=== PATIENT | female | born 1995 | race African-American/Black ===

== ENCOUNTER 2017-02-28 11:42 | Inpatient (IN) | payer SELFPAY ==
[~2017-02-28] VITALS: Ht 165.1 cm; Wt 75.4 kg
[2017-02-28 12:20] LABS: DEFINITIVE VIEW TRANSMISSION; Hematocrit 38.8 % (36.0-46.0); Mean Corpuscular Hemoglobin 26.2 pg (28.0-32.0); Mean Corpuscular Hgb Conc. 33.5 g/dL (32.0-36.0); Mean Corpuscular Volume 78.3 fL (80.0-100.0); Mean Platelet Volume 9.7 fL (7.4-10.4); Platelet Count (auto) 298 10^3/uL (140-450); SUSPECT VIEW TRANSMISSION; White Blood Cell 21.3 10^3/uL (4.4-10.8)
[2017-02-28 12:22] LABS: Metamyelocytes % 0; Myelocytes % 0; Promyelocytes % 0; Reactive Lymphocytes 0
[2017-02-28 12:42] LABS: Albumin 2.8 g/dL (3.4-5.0); Bilirubin, Total 1.4 mg/dL (0.2-1.0); Calcium 8.6 mg/dL (8.5-10.1); Total Protein 8.3 g/dL (6.4-8.2)
[2017-02-28 12:51] LABS: Potassium 2.7 mmol/L (3.5-5.1)
[2017-02-28 13:55] LABS: Microcytosis Slight
[2017-02-28 13:56] LABS: Platelet Estimate Adequate
[2017-02-28 13:57] LABS: Hypochromia Slight; Large Platelets FEW
[2017-02-28] MEDS ORDERED: SODIUM CHLORIDE 0.9% 1,000 ML IVB ONE (13:58)
[2017-02-28] MEDS ORDERED: ONDANSETRON HCL 4 MG/2 ML VIAL IV ONE (14:00)
[2017-02-28] MEDS ORDERED: cefTRIAXone 1GM/50ML D5W 50 ML IV ONE (14:00)
[2017-02-28] MEDS ORDERED: PROMETHAZINE HCL 25 MG/ML 1ML IV ONE (14:15)
[2017-02-28 14:29] LABS: Magnesium 2.3 mg/dL (1.6-2.6)
[2017-02-28] MEDS: POTASSIUM CHL 20MEQ/100ML 100 ML IV SCH ×2 (14:54→16:23)
[2017-02-28 15:01] LABS: Urine Bilirubin Negative (Negative); Urine Color Yellow (Yellow); Urine Glucose Normal (Normal); Urine Nitrite Negative (Negative); Urine RBC 19 /hpf (0 - 4); Urine Squamous Epithelial Cell MANY /hpf (<5)
[2017-02-28 15:02] LABS: Urine Blood 2+ /uL (Negative); Urine Ketone 3+ (Negative)
[2017-02-28] MEDS ORDERED: ACETAMINOPHEN/CODEINE#3 (300/30mg) TAB PO PRN (18:45)
[2017-02-28] MEDS ORDERED: TEMAZEPAM 15 MG CAP PO PRN (18:45)
[2017-02-28] MEDS ORDERED: ONDANSETRON HCL 4 MG/2 ML VIAL IV PRN (18:45)
[2017-02-28] MEDS ORDERED: DOCUSATE SOD 100 MG CAP PO PRN (18:45)
[2017-02-28] MEDS: NITROFURANTOIN (MONO) 100 mg CAP PO SCH (18:54)
[2017-02-28] MEDS: SODIUM CHLORIDE 0.9% 1,000 ML IV SCH (18:54)
[2017-02-28] MEDS: ACETAMINOPHEN 325 MG TAB PO PRN (20:08)
[2017-02-28 21:09] VITALS: BP 104/69
[2017-02-28 22:00] VITALS: BP 104/69
[2017-02-28] MEDS: BOOST PLUS 8 ounce PO SCH (22:00)
[2017-03-01] VITALS (7 sets, daily range): BP systolic 110–121; BP diastolic 59–71
[2017-03-01] MEDS: ACETAMINOPHEN 325 MG TAB PO PRN ×2 (04:43→21:48)
[2017-03-01] MEDS: SODIUM CHLORIDE 0.9% 1,000 ML IV SCH ×4 (04:44→23:30)
[2017-03-01] MEDS: BOOST PLUS 8 ounce PO SCH ×4 (06:00→21:36)
[2017-03-01] MEDS: NITROFURANTOIN (MONO) 100 mg CAP PO SCH ×2 (06:13→18:06)
[2017-03-01 07:14] LABS: Basophils # (auto) 0.1 uL; Basophils % (auto) 0.5 % (0.0-2.0); DEFINITIVE VIEW TRANSMISSION; Eosinophils # (auto) 0 uL; Lymphocytes # (auto) 0.9 uL; Mean Corpuscular Hemoglobin 26.5 pg (28.0-32.0); Mean Corpuscular Hgb Conc. 33.4 g/dL (32.0-36.0); Mean Corpuscular Volume 79.4 fL (80.0-100.0); Mean Platelet Volume 10.8 fL (7.4-10.4); Monocytes # (auto) 2.1 uL; Neutrophils # (auto) 14.3 uL; Neutrophils % (auto) 82.5 % (37.0-80.0); Platelet Count (auto) 240 10^3/uL (140-450); Red Cell Distribution Width 14.8 % (11.6-16.0); White Blood Cell 17.3 10^3/uL (4.4-10.8)
[2017-03-01 07:40] LABS: Potassium 3.2 mmol/L (3.5-5.1)
[2017-03-01 07:47] LABS: BUN/Creatinine Ratio 11.1; Bilirubin, Total 1.1 mg/dL (0.2-1.0); Calcium 8.3 mg/dL (8.5-10.1); Total Protein 6.6 g/dL (6.4-8.2)
[2017-03-01] MEDS: cefTRIAXone 1GM/50ML D5W 50 ML IV SCH (09:12)
[2017-03-01] MEDS: PRENATAL VITAMIN TAB PO SCH (10:14)
[2017-03-01] MEDS: ONDANSETRON HCL 4 MG/2 ML VIAL IV PRN (12:36)
[2017-03-01] MEDS: guaiFENesin 200 MG/10 ML UD PO PRN ×2 (12:36→18:59)
[2017-03-01] MEDS ORDERED: SOD CHL 0.9%/ KCL 40MEQ 1,000 ML IV SCH (13:00)
[2017-03-01] MEDS ORDERED: POTASSIUM CHL 20MEQ/100ML 100 ML IV SCH (13:30)
[2017-03-01] MEDS ORDERED: POTASSIUM CHL 20MEQ/100ML 100 ML IV ONE (13:30)
[2017-03-01] MEDS ORDERED: POTASSIUM CHLORIDE 20 MEQ, LIDOCAINE 1% (LOCAL ANESTH.) 2 ML in SODIUM CHL 0.9% 100 ML IV ONE (14:45)
[2017-03-01] MEDS ORDERED: POTASSIUM CHLORIDE 40 MEQ, LIDOCAINE 1% (LOCAL ANESTH.) 4 ML in SODIUM CHL 0.9% 250 ML IV ONE (14:45)
[2017-03-01] MEDS: SOD CHL 0.9%/ KCL 40MEQ 1,000 ML IV SCH (15:30)
[2017-03-01] MEDS ORDERED: FAMOTIDINE (10MG/ML) 2ML VL IV ONE (16:30)
[2017-03-02] MEDS: guaiFENesin 200 MG/10 ML UD PO PRN ×3 (02:07→17:42)
[2017-03-02] MEDS: ACETAMINOPHEN 325 MG TAB PO PRN ×3 (02:07→15:57)
[2017-03-02] MEDS: SOD CHL 0.9%/ KCL 40MEQ 1,000 ML IV SCH ×3 (04:08→15:22)
[2017-03-02 05:00] VITALS: BP 109/50
[2017-03-02 05:58] LABS: Basophils # (auto) 0 uL; Basophils % (auto) 0.3 % (0.0-2.0); DEFINITIVE VIEW TRANSMISSION; Eosinophils # (auto) 0.1 uL; Eosinophils % (auto) 0.4 % (0.0-7.0); Hematocrit 29.1 % (36.0-46.0); Hemoglobin 9.8 g/dL (12.2-16.2); Lymphocytes # (auto) 1.1 uL; Lymphocytes % (auto) 8.3 % (10.0-50.0); Mean Corpuscular Hemoglobin 26.3 pg (28.0-32.0); Mean Corpuscular Hgb Conc. 33.6 g/dL (32.0-36.0); Mean Corpuscular Volume 78.2 fL (80.0-100.0); Mean Platelet Volume 10.1 fL (7.4-10.4); Monocytes # (auto) 1.6 uL; Monocytes % (auto) 11.7 % (0.0-12.0); Neutrophils % (auto) 79.3 % (37.0-80.0); Platelet Count (auto) 247 10^3/uL (140-450); Red Cell Distribution Width 14.9 % (11.6-16.0); White Blood Cell 13.9 10^3/uL (4.4-10.8)
[2017-03-02] MEDS: BOOST PLUS 8 ounce PO SCH ×4 (06:00→22:00)
[2017-03-02 06:10] LABS: Potassium 3.4 mmol/L (3.5-5.1)
[2017-03-02 06:20] LABS: BUN/Creatinine Ratio 6.4; Calcium 8.3 mg/dL (8.5-10.1); Magnesium 1.7 mg/dL (1.6-2.6)
[2017-03-02] MEDS: NITROFURANTOIN (MONO) 100 mg CAP PO SCH ×2 (06:31→17:42)
[2017-03-02 08:00] VITALS: BP 128/77
[2017-03-02 09:00] VITALS: BP 128/77
[2017-03-02] MEDS: cefTRIAXone 1GM/50ML D5W 50 ML IV SCH (09:33)
[2017-03-02] MEDS: FAMOTIDINE (10MG/ML) 2ML VL IV SCH (09:34)
[2017-03-02] MEDS: PRENATAL VITAMIN TAB PO SCH (09:46)
[2017-03-02 12:22] VITALS: BP 112/64
[2017-03-02] MEDS ORDERED: SOD CHL 0.9%/ KCL 40MEQ 1,000 ML IV ONE (13:00)
[2017-03-02] MEDS: MAGNESIUM SULFATE 1GM/100ML 100 ML IV SCH ×2 (15:22→16:26)
[2017-03-02 16:00] VITALS: BP 109/60
[2017-03-02 21:29] VITALS: BP 120/68
[2017-03-03] MEDS: guaiFENesin 200 MG/10 ML UD PO PRN ×2 (03:13→22:33)
[2017-03-03] MEDS: ACETAMINOPHEN 325 MG TAB PO PRN (03:14)
[2017-03-03 05:10] VITALS: BP 111/63
[2017-03-03 05:51] LABS: Basophils # (auto) 0 uL; Basophils % (auto) 0.1 % (0.0-2.0); DEFINITIVE VIEW TRANSMISSION; Eosinophils # (auto) 0.1 uL; Eosinophils % (auto) 0.7 % (0.0-7.0); Hematocrit 29.5 % (36.0-46.0); Lymphocytes # (auto) 1.3 uL; Lymphocytes % (auto) 11.5 % (10.0-50.0); Mean Corpuscular Hemoglobin 26.5 pg (28.0-32.0); Mean Corpuscular Hgb Conc. 33.8 g/dL (32.0-36.0); Mean Corpuscular Volume 78.5 fL (80.0-100.0); Mean Platelet Volume 9.8 fL (7.4-10.4); Monocytes # (auto) 1.2 uL; Monocytes % (auto) 10.5 % (0.0-12.0); Neutrophils # (auto) 8.7 uL; Neutrophils % (auto) 77.2 % (37.0-80.0); Platelet Count (auto) 275 10^3/uL (140-450); Red Cell Distribution Width 14.8 % (11.6-16.0); White Blood Cell 11.3 10^3/uL (4.4-10.8)
[2017-03-03] MEDS: BOOST PLUS 8 ounce PO SCH ×4 (06:00→22:33)
[2017-03-03 06:13] LABS: BUN/Creatinine Ratio 4.5; Potassium 3.8 mmol/L (3.5-5.1)
[2017-03-03] MEDS: NITROFURANTOIN (MONO) 100 mg CAP PO SCH (06:53)
[2017-03-03] MEDS: SOD CHL 0.9%/ KCL 40MEQ 1,000 ML IV SCH (06:53)
[2017-03-03 09:00] VITALS: BP 113/64
[2017-03-03] MEDS: cefTRIAXone 1GM/50ML D5W 50 ML IV SCH (11:52)
[2017-03-03] MEDS: FAMOTIDINE (10MG/ML) 2ML VL IV SCH (11:52)
[2017-03-03] MEDS: ONDANSETRON HCL 4 MG/2 ML VIAL IV PRN (11:53)
[2017-03-03 13:00] VITALS: BP 116/80
[2017-03-03] MEDS: PRENATAL VITAMIN TAB PO SCH (13:24)
[2017-03-03] MEDS: SODIUM CHLORIDE 0.9% 1,000 ML IV SCH (13:34)
[2017-03-03 22:38] VITALS: BP 129/76
[2017-03-04] MEDS: ACETAMINOPHEN 325 MG TAB PO PRN (03:36)
[2017-03-04 05:32] VITALS: BP 114/59
[2017-03-04] MEDS: BOOST PLUS 8 ounce PO SCH (05:45)
[2017-03-04 05:59] LABS: Basophils # (auto) 0 uL; Basophils % (auto) 0.1 % (0.0-2.0); DEFINITIVE VIEW TRANSMISSION; Eosinophils # (auto) 0.1 uL; Hematocrit 29.6 % (36.0-46.0); Hemoglobin 9.9 g/dL (12.2-16.2); Lymphocytes # (auto) 1.5 uL; Lymphocytes % (auto) 15.8 % (10.0-50.0); Mean Corpuscular Hemoglobin 26.2 pg (28.0-32.0); Mean Corpuscular Hgb Conc. 33.6 g/dL (32.0-36.0); Mean Corpuscular Volume 77.9 fL (80.0-100.0); Mean Platelet Volume 9.2 fL (7.4-10.4); Monocytes # (auto) 1.1 uL; Neutrophils % (auto) 72.1 % (37.0-80.0); Platelet Count (auto) 300 10^3/uL (140-450); Red Cell Distribution Width 15.3 % (11.6-16.0); White Blood Cell 9.7 10^3/uL (4.4-10.8)
[2017-03-04 06:19] LABS: BUN/Creatinine Ratio 4.3; Calcium 7.9 mg/dL (8.5-10.1); Magnesium 1.7 mg/dL (1.6-2.6); Potassium 3.7 mmol/L (3.5-5.1)
[2017-03-04 08:00] VITALS: BP 114/60
[2017-03-04] MEDS: SODIUM CHLORIDE 0.9% 1,000 ML IV SCH ×2 (08:00)
[2017-03-04] MEDS: cefTRIAXone 1GM/50ML D5W 50 ML IV SCH (09:00)
[2017-03-04 09:14] VITALS: BP 114/60
[2017-03-04] MEDS ORDERED: MAGNESIUM SULFATE 1GM/100ML 100 ML IV ONE (09:15)
[2017-03-04] MEDS ORDERED: POTASSIUM CHL 20 Meq TABLET PO ONE (09:15)
[2017-03-04] MEDS: PRENATAL VITAMIN TAB PO SCH (09:52)
[2017-03-04] MEDS: FAMOTIDINE (10MG/ML) 2ML VL IV SCH (10:00)
[2017-03-04] MEDS ORDERED: CEPH-37 PO (10:22)
[2017-03-04 10:41] VITALS: BP 114/60
== END 2017-03-04 11:50 | disposition home or self-care (01) | DRG 781 ==
LOC: ER 12:00 → TELE 12:01 → TELE-EAST 20:20 → EAST 03-03 23:42
PROVIDERS: ADMIT Internal Medicine; ATTEND Internal Medicine
DX: O98.811 Other maternal infectious and parasitic diseases complicating pregnancy, first trimester (principal); E43 Unspecified severe protein-calorie malnutrition; A41.1 Sepsis due to other specified staphylococcus; E87.1 Hypo-osmolality and hyponatremia; O23.01 Infections of kidney in pregnancy, first trimester; O99.011 Anemia complicating pregnancy, first trimester; O99.281 Endocrine, nutritional and metabolic diseases complicating pregnancy, first trimester; O21.0 Mild hyperemesis gravidarum; E87.6 Hypokalemia; E86.0 Dehydration; Z83.3 Family history of diabetes mellitus; Z68.29 Body mass index [BMI] 29.0-29.9, adult; Z3A.01 Less than 8 weeks gestation of pregnancy; Z68.27 Body mass index [BMI] 27.0-27.9, adult
CPT/HCPCS: 36415; 76801; 80048; 80053; 81001; 81025; 82150; 83605; 83690; 83735; 84132; 84443; 84702; 85007; 85025; 85027; 87040; 87077; 87147; 87186; 94761; 96361; 96365; 96375; J0696; J2001; J2405; J3480; J3490

== ENCOUNTER 2018-11-27 16:20 | Emergency (ER) | payer SELFPAY ==
[~2018-11-27] VITALS: Ht 167.6 cm; Wt 80.7 kg
[~2018-11-27 16:20] MED LIST: CEPH-37 PO
[2018-11-27 17:01] LABS: Basophils # (auto) 0 uL; Eosinophils # (auto) 0 uL; Hemoglobin 10.9 g/dL (12.2-16.2); Lymphocytes # (auto) 1.5 uL; Monocytes # (auto) 0.6 uL
[2018-11-27 17:02] LABS: Basophils % (auto) 0.4 % (0.0-2.0); Eosinophils % (auto) 0.3 % (0.0-7.0); Hematocrit 34.7 % (36.0-46.0); Lymphocytes % (auto) 15.8 % (10.0-50.0); Mean Corpuscular Hemoglobin 22.6 pg (28.0-32.0); Mean Corpuscular Hgb Conc. 31.5 g/dL (32.0-36.0); Mean Corpuscular Volume 71.8 fL (80.0-100.0); Monocytes % (auto) 6.1 % (0.0-12.0); Neutrophils # (auto) 7.1 uL; Neutrophils % (auto) 77.4 % (37.0-80.0); Platelet Count (auto) 259 10^3/uL (140-450); Red Blood Cells 4.83 10^6/uL (4.0-5.20); Red Cell Distribution Width 18.7 % (11.8-14.3); White Blood Cell 9.2 10^3/uL (4.4-10.8)
[2018-11-27 17:18] LABS: Albumin 3.7 g/dL (3.4-5.0); Calcium 8.5 mg/dL (8.5-10.1); Potassium 4.1 mmol/L (3.5-5.1); Urine Amorphous Crystal FEW /hpf (None Seen); Urine Bacteria FEW /hpf (None Seen); Urine Blood 2+ /uL (Negative); Urine Budding Yeast OCCASIONAL /hpf (None Seen); Urine Specific Gravity 1.014 (1.001-1.035); Urine WBC 10 /hpf (0 - 5)
[2018-11-27 17:21] LABS: BUN/Creatinine Ratio 12.2; Bilirubin, Total 0.3 mg/dL (0.2-1.0); Total Protein 7.4 g/dL (6.4-8.2)
[2018-11-28 02:50] VITALS: BP 122/70
== END 2018-11-28 02:35 | disposition left against medical advice (07) ==
LOC: ER 16:20
DX: O46.91 Antepartum hemorrhage, unspecified, first trimester (principal); Z3A.01 Less than 8 weeks gestation of pregnancy; Z53.29 Procedure and treatment not carried out because of patient's decision for other reasons
CPT/HCPCS: 36415; 76801; 76817; 80053; 81001; 81025; 84702; 85025

== ENCOUNTER 2024-05-12 09:07 | Emergency (ER) | payer MEDICAID, OTHER ==
[~2024-05-12] VITALS: Ht 172.7 cm; Wt 92.5 kg
[2024-05-12 09:28] VITALS: BP 119/83; PULSE 94; RESP 18; O2SAT 100
[2024-05-12 10:23] LABS: Basophils # (auto) 0 10 ^3/uL (0-0.2); Eosinophils # (auto) 0 10 ^3/uL (0-0.8); Eosinophils % (auto) 0.4 % (0.0-7.0); Hemoglobin 12.8 g/dL (12.2-16.2); Lymphocytes # (auto) 2.2 10 ^3/uL (0.4-5.4); Monocytes # (auto) 0.5 10 ^3/uL (0-1.3)
[2024-05-12 10:24] LABS: Basophils % (auto) 0.4 % (0.0-2.0); Hematocrit 38.8 % (36.0-46.0); Lymphocytes % (auto) 26.1 % (10.0-50.0); Mean Corpuscular Hemoglobin 25.3 pg (28.0-32.0); Mean Corpuscular Volume 76.8 fL (80.0-100.0); Monocytes % (auto) 5.9 % (0.0-12.0); Neutrophils # (auto) 5.7 10 ^3/uL (1.6-8.6); Neutrophils % (auto) 67.2 % (37.0-80.0); Nucleated Red Blood Cells % 0.2 %; Red Blood Cells 5.05 10^6/uL (4.0-5.20); Red Cell Distribution Width 17.5 % (11.8-14.3); White Blood Cell 8.5 10^3/uL (4.4-10.8)
[2024-05-12 13:01] LABS: Urine Bacteria FEW /hpf (None Seen); Urine Blood Negative /uL (Negative); Urine Clarity Clear (Clear); Urine Color Light-Yellow (Yellow); Urine Protein, UAD Negative (Negative); Urine Specific Gravity 1.016 (1.001-1.035); Urine Urobilinogen Normal (Negative); Urine WBC 5 /hpf (0 - 5)
== END 2024-05-12 12:56 | disposition left against medical advice (07) ==
LOC: ER 09:07
DX: R10.2 Pelvic and perineal pain (principal); Z34.81 Encounter for supervision of other normal pregnancy, first trimester; Z3A.01 Less than 8 weeks gestation of pregnancy; F15.90 Other stimulant use, unspecified, uncomplicated; Z79.899 Other long term (current) drug therapy
CPT/HCPCS: 36415; 76801; 76817; 81001; 81025; 84702; 85025